=== PATIENT | female | born 1990 | race Caucasian/White ===

== ENCOUNTER 2021-02-23 20:17 | Emergency (ER) | payer OTHER ==
[2021-02-23 21:28] VITALS: RESP 19
[2021-02-23] MEDS ORDERED: ONDANSETRON 4 MG ODT STARTER PACK 2 TAB BTL PO STA (22:44)
--- NOTE | 2021-02-23 22:54 | ED ---
General Adult HPI - General Chief complaint: Nausea/Vomiting/Diarrhea Stated complaint: Vomiting,fever Time Seen by Provider: 02/23/21 22:38 Source: patient, RN notes reviewed Mode of arrival: ambulatory - History of Present Illness Initial comments: Patient presents to the emergency department with concerns of possible COVID. States she had a close contact exposure, then developed nausea and vomiting this evening. Reports taking a dose of Pepto-Bismol prior to arrival with improvement. States she also has had some nasal drainage. Patient had to call off of work this evening and is in need of a work note in order to return. Patient denies fever, chills, headache, sore throat, chest pain, cough, shortness of breath, abdominal pain, diarrhea, dysuria, or hematuria. - Related Data Previous Rx's Medication Instructions Recorded Ondansetron Odt [Zofran Odt] 4 mg PO Q8HR PRN #10 tab 02/23/21 Allergies Allergy/AdvReac Type Severity Reaction Status Date / Time No Known Allergies Allergy Verified 02/23/21 21:25 Review of Systems ROS Statement: Those systems with pertinent positive or pertinent negative responses have been documented in the HPI. ROS Other: All systems not noted in ROS Statement are negative. Past Medical History Past Medical History: No Reported History Past Surgical History: No Surgical Hx Reported Past Psychological History: Depression Smoking Status: Never smoker Past Alcohol Use History: None Reported Past Drug Use History: None Reported General Exam Limitations: no limitations (Well-developed, well-nourished female in no acute distress. Initial temperature 99.0, pulse 83, respirations 19, blood pressure 109/76, pulse ox 100% on room air.) General appearance: alert, in no apparent distress ENT exam: Present: normal exam, normal oropharynx, mucous membranes moist Neck exam: Present: normal inspection. Absent: tenderness, meningismus, lymphadenopathy Respiratory exam: Present: normal lung sounds bilaterally. Absent: respiratory distress, wheezes, rales, rhonchi, stridor Cardiovascular Exam: Present: regular rate, normal rhythm, normal heart sounds. Absent: systolic murmur, diastolic murmur, rubs, gallop, clicks GI/Abdominal exam: Present: soft, normal bowel sounds. Absent: distended, tenderness, guarding, rebound, rigid Back exam: Absent: CVA tenderness (R), CVA tenderness (L) Neurological exam: Present: alert, oriented X3, CN II-XII intact Psychiatric exam: Present: normal affect, normal mood Skin exam: Present: warm, dry, intact, normal color. Absent: rash Course Vital Signs 02/23/21 21:25 Temperature 99.0 F Pulse Rate 83 Respiratory 19 Rate Blood Pressure 109/76 O2 Sat by Pulse 100 Oximetry Medical Decision Making - Medical Decision Making 30-year-old female presents to the emergency department for evaluation. States she has had a recent close contact Covid exposure, then developed some nausea and vomiting this evening. Upon exam, patient is well-appearing and in no acute distress. Vital signs are stable and patient is tolerating oral intake while present in the emergency department. Patient has had no additional episodes of nausea or vomiting while in the waiting room. Patient denies any episodes of abdominal pain or dysuria. Patient's Covid test is negative. She is advised to purchase a home test to have on hand in order to retest if symptoms persist. Patient will be prescribed Zofran for nausea. She will be instructed to follow up with her PCP for a recheck. Return parameters were discussed in detail. Patient verbalizes understanding and agrees with this plan. This patient's care was discussed with my attending, . - Lab Data Lab Results 02/23/21 Range/Units 21:31 Coronavirus (PCR) Not Detected (Not Detectd) Disposition Clinical Impression: Nausea Disposition: HOME SELF-CARE Condition: Stable Instructions (If sedation given, give patient instructions): Acute Nausea and Vomiting (ED) Additional Instructions: Hydration is important. Drinking water or any electrolyte solution as tolerated. Take Zofran for nausea. Obtained a home Covid test to recheck at a later time if symptoms persist. You were provided a work note for today. Follow-up with your PCP for a recheck this week. Return to the emergency department with any new, worsening, or concerning symptoms. Prescriptions: Ondansetron Odt [Zofran Odt] 4 mg PO Q8HR PRN #10 tab PRN Reason: Nausea Is patient prescribed a controlled substance at d/c from ED?: No Referrals: Nonstaff,Physician [Primary Care Provider] - 1-2 days Time of Disposition: 22:53
[2021-02-23 23:49] VITALS: BP 110/79; PULSE 77; TEMP 98.9
== END 2021-02-23 23:20 | disposition home or self-care (01) ==
LOC: EC 20:17
DX: R11.0 Nausea (principal); F32.A Depression, unspecified; Z20.822 Contact with and (suspected) exposure to COVID-19
CPT/HCPCS: 99284; 87635; S0119